=== PATIENT | male | born 1955 | race Caucasian/White ===

== ENCOUNTER 2020-10-28 05:16 | Emergency (ER) | payer MEDICARE, BC ==
[2020-10-28 05:31] VITALS: BP 181/96
--- NOTE | 2020-10-28 05:51 | ED Physician Documentation ---
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 He apparently has normal prostate and he has been doing well for a number of years after getting the stent placed for the tracheomalacia. He has not had to be in the hospital. This evening at about midnight he went to get up to go to the bathroom and was unable to. He has had persistence of this now and has developed some pain associated with it and he has come to the emergency department. Is very uncomfortable with any movement all suprapubic with distention of the suprapubic area. Review of Systems Constitutional: denies: Fever Nose: denies: Congestion Respiratory: denies: Cough GI: denies: Vomiting : reports: Unable to Void PD PAST MEDICAL HISTORY - Past Medical History Past Medical History: Yes Cardiovascular: Other Respiratory: Pneumonia, Other Neuro: None Endocrine/Autoimmune: None GI: None : Retention HEENT: None Psych: None Musculoskeletal: None Derm: None - Past Surgical History Past Surgical History: Yes - Present Medications Home Medications: Ambulatory Orders Medication Instructions Recorded Confirmed Azithromycin [Zithromax] 250 mg PO 10/28/20 Metoprolol Succinate [Toprol Xl] 25 mg PO 10/28/20 Tamsulosin [Flomax] 0.4 mg PO DAILY 10/28/20 10/28/20 - Allergies Allergies/Adverse Reactions: Allergies Allergy/AdvReac Type Severity Reaction Status Date / Time Sulfa (Sulfonamide AdvReac Itching Verified 10/28/20 05:41 Antibiotics) - Social History Does the pt smoke?: No Smoking Status: Never smoker Does the pt drink ETOH?: No Does the pt have substance abuse?: No - Immunizations Immunizations are current?: No Immunizations: TDAP >10years/unknown - POLST Patient has POLST: No PD ED PE NORMAL - Vitals Vital signs reviewed: Yes (tachycardic and hypertensive ) - General General: Alert and oriented X 3, No acute distress, Well developed/nourished - HEENT HEENT: Atraumatic, PERRL, EOMI - Respiratory Respiratory: No respiratory distress - Abdomen Abdomen: Other (suprapubic area is distended. ) - Back Back: No CVA TTP, No spinal TTP - Derm Derm: Normal color, Warm and dry, No rash - Extremities Extremities: No deformity, No edema - Neuro Neuro: Alert and oriented X 3, grease press helper 2-12 intact, No motor deficit, No sensory deficit Eye Opening: Spontaneous Motor: Obeys Commands Verbal: Oriented GCS Score: 15 - Psych Psych: Normal mood, Normal affect Results - Vitals Vitals: Vital Signs - 24 hr 10/28/20 05:22 Temperature 36.5 C Heart Rate 117 H Respiratory 18 Rate Blood Pressure 181/96 H O2 Saturation 99 Oxygen O2 Source Room air - Labs Labs: Laboratory Tests 10/28/20 05:55 Urine Color YELLOW Urine Clarity CLEAR Urine pH 5.5 Ur Specific [place] 1.025 Urine Protein NEGATIVE Urine Glucose (UA) NEGATIVE Urine Ketones NEGATIVE Urine Occult Blood TRACE-INTA Urine Nitrite NEGATIVE Urine Bilirubin NEGATIVE Urine Urobilinogen 0.2 (NORMAL) Ur Leukocyte Esterase NEGATIVE Ur Microscopic Review NOT INDICATED Urine Culture Comments NOT INDICATED PD MEDICAL DECISION MAKING - ED course Complexity details: reviewed results, re-evaluated patient, considered differential, d/w patient ED course: 65-year-old male with a history of recurrent pneumonia and tracheomalacia has had urinary retention previously and he has urinary retention again this morning. A Thomas catheter is placed draining more than 1500 mL of urine. There is no evidence of infection. Departure - Departure Disposition: 01 Home, Self Care Clinical Impression: Urinary retention Condition: Stable Instructions: ED Retention Urinary Male, ED Catheter Care Thomas Follow-Up: YOEL GODOY MD [Primary Care Provider] - Nancie Saleh MD [Provider Admit Priv/Credential] -
[2020-10-28 06:26] LABS: BILIRUBIN,URINE NEGATIVE (NEGATIVE); GLUCOSE, URINE (UA) NEGATIVE (NEGATIVE); KETONES,URINE (UA) NEGATIVE (NEGATIVE); LEUKOCYTE ESTERASE, URINE NEGATIVE (NEGATIVE); NITRITE,URINE NEGATIVE (NEGATIVE); OCCULT BLOOD,URINE TRACE-INTA (NEGATIVE); PH,URINE 5.5 PH (5.0-7.5); PROTEIN,URINE NEGATIVE (NEGATIVE); UROBILINOGEN,URINE 0.2 (NORMAL) E.U./dL (NORMAL)
[2020-10-28 06:27] LABS: CLARITY,URINE CLEAR (CLEAR)
== END 2020-10-28 06:55 | disposition home or self-care (01) ==
LOC: ED 05:16
DX: R33.9 Retention of urine, unspecified (principal)
CPT/HCPCS: 51702; 51798; 81001; 81003; 87086; 99282; 99283

== ENCOUNTER 2020-10-31 11:40 | Emergency (ER) | payer MEDICARE, BC ==
[2020-10-31] MEDS ORDERED: SODIUM CHLORIDE 0.9% 2,789.58 ML IV STA (11:57)
[2020-10-31 12:32] LABS: BASOPHILS # (AUTO) 0.1 10^3/uL (0.0-0.1); BASOPHILS % (AUTO) 0.4 %; EOSINOPHILS # (AUTO) 0.3 10^3/uL (0.0-0.7); EOSINOPHILS % (AUTO) 1.8 %; HCT - HEMATOCRIT 48.1 % (42.0-52.0); HGB - HEMOGLOBIN 15.4 g/dL (14.0-18.0); LYMPHOCYTES % (AUTO) 7.4 %; MEAN CORPUSCULAR HEMOGLOBIN 28.8 pg (27.0-31.0); MEAN CORPUSCULAR VOLUME 89.9 fL (80.0-94.0); MEAN PLATELET VOLUME 9.1 fL (7.4-11.4); MONOCYTES # (AUTO) 1.2 10^3/uL (0.0-1.0); MONOCYTES % (AUTO) 8.8 %; NEUTROPHILS # (AUTO) 11.2 10^3/uL (1.5-6.6); NEUTROPHILS % (AUTO) 81.2 %; PLT - PLATELET COUNT 249 10^3/uL (130-450); RED BLOOD COUNT 5.35 10^6/uL (4.70-6.10); RED CELL DISTRIBUTION WIDTH 13.1 % (12.0-15.0); WHITE BLOOD COUNT 13.8 x10^3/uL (4.8-10.8)
[2020-10-31 12:41] LABS: ALBUMIN 4.9 g/dL (3.2-5.5); ALBUMIN/GLOBULIN RATIO 1.4 (1.0-2.2); BILIRUBIN,TOTAL 0.5 mg/dL (0.2-1.0); CALCIUM 9.9 mg/dL (8.5-10.3); CREATININE 0.9 mg/dL (0.6-1.2); POTASSIUM 4.1 mmol/L (3.5-5.0); TOTAL PROTEIN 8.5 g/dL (6.7-8.2)
[2020-10-31 13:18] LABS: BILIRUBIN,URINE NEGATIVE (NEGATIVE); GLUCOSE, URINE (UA) NEGATIVE (NEGATIVE); KETONES,URINE (UA) NEGATIVE (NEGATIVE); LEUKOCYTE ESTERASE, URINE NEGATIVE (NEGATIVE); NITRITE,URINE NEGATIVE (NEGATIVE); OCCULT BLOOD,URINE LARGE (NEGATIVE); PH,URINE 5.5 PH (5.0-7.5); PROTEIN,URINE 30 mg/dL (NEGATIVE); UROBILINOGEN,URINE 0.2 (NORMAL) E.U./dL (NORMAL)
[2020-10-31 13:24] LABS: BACTERIA,URINE Rare /HPF (None Seen); CLARITY,URINE SL. CLOUDY (CLEAR); RBC,URINE TNTC /HPF (0-5); SQUAMOUS EPITHELIAL CELL,UR FEW Squamous (<= Few); WBC,URINE 0-3 /HPF (0-3)
[2020-10-31 13:25] LABS: MUCUS,URINE Few Strands
[2020-10-31] MEDS ORDERED: IOVERSOL 320 100 ML VIAL IVP ONE ×2 (13:58→14:08)
[2020-10-31] MEDS ORDERED: METOPROLOL TARTRATE 50 MG TABLET PO STA (14:44)
--- NOTE | 2020-10-31 14:45 | CT Report ---
PROCEDURE: ABDOMEN/PELVIS W/WO INDICATIONS: hematuria, urinary retention, fever 100.7 at home CONTRAST: IV CONTRAST: Optiray 320 ml: 140 PO CONTRAST: *NO PO CONTRAST TECHNIQUE: After the administration of intravenous contrast, 5 mm thick sections acquired from the diaphragms to the symphysis. 5 mm thick coronal and sagittal reformats were acquired. For radiation dose reducti on, the following was used: automated exposure control, adjustment of mA and/or kV according to faviola ent size. COMPARISON: None. FINDINGS: Image quality: Excellent. Lung bases: Airspace consolidation involving posterior lateral aspect of left lower lobe near left rose ng base containing a focal area of calcification measures 3 mm in size series 5 image 14. Heart size is normal. Urinary system: Both kidneys are normal in size, without hydronephrosis on pre-contrast images. 5 m m nonobstructing stone in the midpole of left kidney is seen. Mild bilateral perinephric fat strandin g is seen, no perinephric fluid collection. There is normal bilateral renal enhancement. Renal calyc es appear normal in morphology when filled with contrast. Opacified portions of both ureters demonst rate normal caliber. Diffuse bladder wall thickening is seen measures up to 9 mm in thickness anterio rly. No calcified bladder stones. Enlarged prostate gland with significant mass effect on fluorosco py revealed a bladder is seen. A Thomas catheter is noted within bladder lumen. Other solid organs: Liver and spleen are normal in size and enhancement. Gallbladder is within iram l limits Biliary system is non dilated. Pancreas enhances normally. No adrenal nodules. Peritoneum and bowel: Bowel loops demonstrate normal wall thickness and caliber. No free fluid or a ir. Appendix is visualized and is within normal limits. Nodes and vessels: No retroperitoneal or mesenteric adenopathy by size criteria. Aorta and inferior vena cava are normal in size. Abdominal wall: No ventral hernias. Pelvis: No pathologic free pelvic fluid. Bilateral inguinal hernias are seen containing fat only. No inguinal lymphadenopathy. Bones: No suspicious bony lesions. No vertebral body compression fractures. Degenerative endplate c hanges and bilateral facet arthrosis throughout lumbar spine is seen. IMPRESSION: 1. 5 mm nonobstructing stone in mid pole of left kidney. No obstructing renal stone or hydronephrosis . Normal-appearing bilateral ureters. 2. Mild bilateral perinephric fat stranding. No perinephric fluid collection. No discrete enhancing r enal lesion. Diffuse bladder wall thickening. Markedly enlarged prostate gland with mass effect on fl oor of urinary bladder. Thomas catheter in place. Finding may represent chronic urinary outlet obstruc tion and/or UTI with pyonephritis and cystitis. 3. Normal appendix. No bowel obstruction. No free fluid of free air. No abdominal or pelvic abscess c ollection. 4. Masslike consolidation in posterior lateral aspect of left lower lobe near left lung base with foc al area of calcification. Finding most likely represent left basilar infiltrate. Follow-up until reso lution is recommended. Reviewed by: Genaro Emerson MD on 10/31/2020 2:44 PM PDT Approved by: Genaro Emerson MD on 10/31/2020 2:44 PM PDT Station ID: [id number]
--- NOTE | 2020-10-31 15:09 | XRAY Report ---
PROCEDURE: Chest 2 View X-Ray INDICATIONS: history of recurrent pneumonia TECHNIQUE: 2 view(s) of the chest. COMPARISON: CT of abdomen and pelvis from the same day. FINDINGS: Surgical changes and devices: None. Lungs and pleura: No pleural effusions or pneumothorax. Airspace opacity is seen in lateral aspect o f left lung base. Mediastinum: Mediastinal contours are normal. Heart size is normal. Bones and chest wall: No suspicious bony abnormalities. Soft tissues appear unremarkable. Severe b ilateral glenohumeral joint osteophytic changes are seen. IMPRESSION: 1. Finding is suggestive of left basilar infiltrate which was also seen on CT study. Follow-up until resolution is recommended to rule out underlying malignant process. Reviewed by: Genaro Emerson MD on 10/31/2020 3:07 PM PDT Approved by: Genaro Emerson MD on 10/31/2020 3:07 PM PDT Station ID: [id number]
--- NOTE | 2020-10-31 15:16 | ED Physician Documentation ---
History of Present Illness - Stated complaint Stated Complaint: MALE - Chief complaint Chief Complaint: Fever - History obtained from History obtained from: Patient - Additonal information Additional information: 65-year-old man with past medical history of recurrent pneumonia on daily azithromycin for the past 2 years, high blood pressure on metoprolol, presents with hematuria today and temperature of 100.7 taken by oral thermometer this morning. Patient states that he had a Euceda placed on Saturday for urinary retention of unknown cause. Since that time he has been doing well and it has been draining appropriately but he noticed that it was blood-tinged this morning. Denies dysuria, abdominal pain, back pain or other symptoms. Denies chest pain, shortness of breath, fever, cough. Review of Systems Ten Systems: 10 systems reviewed and negative Constitutional: reports: Fever Respiratory: denies: Dyspnea, Cough GI: denies: Abdominal Pain, Nausea, Vomiting : reports: Dysuria, Hematuria PD PAST MEDICAL HISTORY - Past Medical History Past Medical History: Yes Cardiovascular: Other Respiratory: Pneumonia, Other Neuro: None Endocrine/Autoimmune: None GI: None : Retention HEENT: None Psych: None Musculoskeletal: None Derm: None - Past Surgical History Past Surgical History: Yes - Present Medications Home Medications: Ambulatory Orders Medication Instructions Recorded Confirmed Azithromycin [Zithromax] 250 mg PO 10/28/20 Metoprolol Succinate [Toprol Xl] 25 mg PO 10/28/20 Tamsulosin [Flomax] 0.4 mg PO DAILY 10/28/20 10/28/20 Levofloxacin 750 mg PO BID 7 Days #14 tablet 10/31/20 - Allergies Allergies/Adverse Reactions: Allergies Allergy/AdvReac Type Severity Reaction Status Date / Time Sulfa (Sulfonamide AdvReac Itching Verified 10/31/20 11:54 Antibiotics) - Social History Does the pt smoke?: No Smoking Status: Never smoker Does the pt drink ETOH?: No Does the pt have substance abuse?: No - Immunizations Immunizations are current?: No Immunizations: TDAP >10years/unknown - POLST Patient has POLST: No PD ED PE NORMAL - Vitals Vital signs reviewed: Yes - General General: Alert and oriented X 3, No acute distress, Well developed/nourished - HEENT HEENT: Atraumatic, PERRL, EOMI - Neck Neck: Supple, no meningeal sign - Cardiac Cardiac: RRR - Respiratory Respiratory: No respiratory distress, Clear bilaterally - Abdomen Abdomen: Non tender, Non distended - Male Male : Other (euceda with blood tinged urine) - Rectal Rectal: Deferred - Back Back: No CVA TTP - Derm Derm: Normal color - Extremities Extremities: No deformity - Neuro Neuro: Alert and oriented X 3 - Psych Psych: Normal mood, Normal affect Results - Vitals Vitals: Oxygen O2 Source Room air - Labs Labs: Microbiology 10/31/20 12:07 Blood Culture - Preliminary Blood NO GROWTH AFTER 2 DAYS 10/31/20 12:35 Blood Culture - Preliminary Blood NO GROWTH AFTER 1 DAY Laboratory Tests 10/31/20 10/31/20 10/31/20 12:07 12:07 12:07 WBC 13.8 H RBC 5.35 Hgb 15.4 Hct 48.1 MCV 89.9 MCH 28.8 MCHC 32.0 RDW 13.1 Plt Count 249 MPV 9.1 Neut # (Auto) 11.2 H Lymph # (Auto) 1.0 L [place] # (Auto) 1.2 H Eos # (Auto) 0.3 Baso # (Auto) 0.1 Absolute Nucleated RBC 0.00 Nucleated RBC % 0.0 Sodium 137 Potassium 4.1 Chloride 94 L Carbon Dioxide 27 Anion Gap 16.0 H BUN 19 Creatinine 0.9 Estimated GFR (MDRD) 85 L Glucose 96 Lactic Acid 1.2 Calcium 9.9 Total Bilirubin 0.5 AST 21 ALT 12 Alkaline Phosphatase 90 Total Protein 8.5 H Albumin 4.9 Globulin 3.6 Albumin/Globulin Ratio 1.4 Urine Color Urine Clarity Urine pH Ur Specific [place] Urine Protein Urine Glucose (UA) Urine Ketones Urine Occult Blood Urine Nitrite Urine Bilirubin Urine Urobilinogen Ur Leukocyte Esterase Urine RBC Urine WBC Ur Squamous Epith Cells Urine Bacteria Urine Mucus Urine Culture Comments 10/31/20 13:09 WBC RBC Hgb Hct MCV MCH MCHC RDW Plt Count MPV Neut # (Auto) Lymph # (Auto) [place] # (Auto) Eos # (Auto) Baso # (Auto) Absolute Nucleated RBC Nucleated RBC % Sodium Potassium Chloride Carbon Dioxide Anion Gap BUN Creatinine Estimated GFR (MDRD) Glucose Lactic Acid Calcium Total Bilirubin AST ALT Alkaline Phosphatase Total Protein Albumin Globulin Albumin/Globulin Ratio Urine Color YELLOW Urine Clarity SL. CLOUDY Urine pH 5.5 Ur Specific [place] >=1.030 H Urine Protein 30 H Urine Glucose (UA) NEGATIVE Urine Ketones NEGATIVE Urine Occult Blood LARGE H Urine Nitrite NEGATIVE Urine Bilirubin NEGATIVE Urine Urobilinogen 0.2 (NORMAL) Ur Leukocyte Esterase NEGATIVE Urine RBC TNTC H Urine WBC 0-3 Ur Squamous Epith Cells FEW Squamous Urine Bacteria Rare Urine Mucus Few Strands Urine Culture Comments NOT INDICATED PD MEDICAL DECISION MAKING - ED course ED course: 65yM with pmh recurrent pneumonia on daily prophylactic azithromycin, recent ed visit for urinary retention p/w hematuria from euceda and fever 100.7 oral at home today. patient with discomfort at euceda site but otherwise asymptomatic. Urine without clear evidence of uti. ct scan with bladder thickening concerning for possible uti. no obstructing stone on ct. possible basilar scarring vs atelectasis vs pneumonia as well. discussed these results with patient and a shared decision was made to trial outpatient antibiotics with strict return precautions given. He will f.u with his claims analyst and urologist. Departure - Departure Disposition: 01 Home, Self Care Clinical Impression: Hematuria, Left pulmonary infiltrate on CXR, Fever Condition: Good Instructions: ED Fever Unconf Cause Prescriptions: Levofloxacin 750 mg PO BID 7 Days #14 tablet Comments: You were seen in the emergency department for fever and blood in your urine. We found a 5 mm left kidney stone that is not obstructing. We also found that you have bladder thickening and an enlarged prostate. You should follow-up with urology this week for further recommendations. Please take the antibiotic we prescribed and hold off on your daily azithromycin while taking this antibiotic. After you finish it you can switch back to your azithromycin. Return to the emergency department if you develop any new or worsening symptoms or have other concerns. Follow-up with your claims analyst in regards to the left lung spot that we discussed. Discharge Date/Time: 10/31/20 15:49
[2020-10-31 15:51] VITALS: BP 135/77
== END 2020-10-31 15:49 | disposition home or self-care (01) ==
LOC: ED 11:40
DX: R31.9 Hematuria, unspecified (principal); R50.9 Fever, unspecified; R91.8 Other nonspecific abnormal finding of lung field; Z87.01 Personal history of pneumonia (recurrent); N20.0 Calculus of kidney; N32.89 Other specified disorders of bladder; N40.1 Benign prostatic hyperplasia with lower urinary tract symptoms; R33.8 Other retention of urine
CPT/HCPCS: 36415; 71046; 74178; 80053; 81001; 83605; 85025; 87040; 96360; 96361; 99284; A9270; Q9967; 87086

== ENCOUNTER 2020-11-13 00:09 | Emergency (ER) | payer MEDICARE, BC ==
--- OUTSIDE RECORDS SUMMARY | 2020-11-13 00:12 | EXTERNAL MEDICAL SUMMARY RPT | Continuity of Care Document ---
:1955 Demographics Phone Unavailable Preferred Language Unknown Marital Status Unknown Episcopalian Affiliation Unknown Race Unknown Ethnic Group Unknown Author Organization [facility] Address [address] [id number] Phone Social History date description facility [phone]
--- OUTSIDE RECORDS SUMMARY | 2020-11-13 00:17 | EXTERNAL MEDICAL SUMMARY RPT | Continuity of Care Document ---
:1955 Demographics Phone Unavailable Preferred Language Unknown Marital Status Unknown Episcopalian Affiliation Unknown Race Unknown Ethnic Group Unknown Author Organization [facility] Address [address] [place] [address] Phone Social History date description facility [phone]
--- NOTE | 2020-11-13 01:06 | ED Physician Documentation ---
PD HPI MALE - Stated complaint Stated Complaint: MALE - Chief complaint Chief Complaint: Abd Pain - History obtained from History obtained from: Patient - History of Present Illness Timing - onset: Enter time (17:00) Timing - details: Abrupt onset Pain level max: 0 Pain level now: 0 Associated symptoms: Hematuria Recently seen: Emergency Dept - Additional information Additional information: patient presents with painless hematuria. He was evaluated in this ED 10/28 for urinary retention, euceda catheter was placed and he was discharged with euceda in place. He returned 10/31 for fever; ED note indicates gross hematuria although patient says he does not recall noting any obvious blood in his urine. His tests on the 10/31 visit were suggestive of UTI and he was prescribed levaquin. He says he felt much improved with the levaquin and he completed the prescribed course. He has a urologist but was unable to schedule a follow up appointment sooner than this coming Saturday and thus the euceda catheter remains in place. At approximately 5 PM, he noted gross hematuria output into the euceda catheter. He did not sustain an injury or have any traction on the catheter. He denies fever. The urine has gradually become less bloody but due to its persistence for several hours he presents for ED evaluation. Review of Systems Constitutional: denies: Fever, Chills, Sweats GI: denies: Abdominal Pain : reports: Hematuria. denies: Dysuria Musculoskeletal: denies: Back pain PD PAST MEDICAL HISTORY - Past Medical History Past Medical History: Yes Cardiovascular: Other Respiratory: Pneumonia, Other Neuro: None Endocrine/Autoimmune: None GI: None : Retention HEENT: None Psych: None Musculoskeletal: None Derm: None - Past Surgical History Past Surgical History: Yes - Present Medications Home Medications: Ambulatory Orders Medication Instructions Recorded Confirmed Azithromycin [Zithromax] 250 mg PO 10/28/20 Metoprolol Succinate [Toprol Xl] 25 mg PO 10/28/20 Tamsulosin [Flomax] 0.4 mg PO DAILY 10/28/20 10/28/20 Levofloxacin 750 mg PO BID 7 Days #14 tablet 10/31/20 Levofloxacin 750 mg PO BID #13 tablet 11/13/20 - Allergies Allergies/Adverse Reactions: Allergies Allergy/AdvReac Type Severity Reaction Status Date / Time Sulfa (Sulfonamide AdvReac Itching Verified 11/13/20 00:18 Antibiotics) - Social History Does the pt smoke?: No Smoking Status: Never smoker Does the pt drink ETOH?: No Does the pt have substance abuse?: No - Immunizations Immunizations are current?: Yes Immunizations: TDAP >10years/unknown - POLST Patient has POLST: No PD ED PE NORMAL - Vitals Vital signs reviewed: Yes - General General: Alert and oriented X 3, No acute distress, Well developed/nourished - Abdomen Abdomen: Soft, Non tender - Back Back: No CVA TTP PD ED PE EXPANDED - Male Male : Other (euceda catheter in place with translucent gross hematuria in tubing and collection bag without clots) Results - Vitals Vitals: Vital Signs - 24 hr 11/13/20 11/13/20 11/13/20 00:10 00:13 02:13 Temperature 36.7 C 36.7 C 36.6 C Heart Rate 91 91 90 Respiratory 18 18 18 Rate Blood Pressure 164/83 H 164/83 H 161/101 H O2 Saturation 99 99 98 Oxygen O2 Source Room air - Labs Labs: Laboratory Tests 11/13/20 11/13/20 11/13/20 01:13 01:24 01:24 WBC 6.9 RBC 4.86 Hgb 14.0 Hct 42.3 MCV 87.0 MCH 28.8 MCHC 33.1 RDW 12.5 Plt Count 243 MPV 8.3 Neut # (Auto) 4.8 Lymph # (Auto) 1.1 L [place] # (Auto) 0.6 Eos # (Auto) 0.3 Baso # (Auto) 0.0 Absolute Nucleated RBC 0.00 Nucleated RBC % 0.0 Sodium 136 Potassium 4.2 Chloride 101 Carbon Dioxide 26 Anion Gap 9.0 BUN 23 H Creatinine 0.8 Estimated GFR (MDRD) 97 Glucose 113 H Calcium 8.9 Urine Color RED/BLOODY Urine Clarity BLOODY Urine pH 6.5 Ur Specific [place] 1.025 Urine Protein Urine Glucose (UA) 100 H Urine Ketones TRACE Urine Occult Blood LARGE H Urine Nitrite POSITIVE H Urine Bilirubin NEGATIVE Urine Urobilinogen Ur Leukocyte Esterase SMALL H Urine RBC TNTC H Urine WBC 0-3 Ur Squamous Epith Cells RARE Squamous Urine Bacteria Moderate H Urine Yeast PRESENT Ur Microscopic Review INDICATED Urine Culture Comments INDICATED PD MEDICAL DECISION MAKING - ED course Complexity details: reviewed old records, reviewed results, re-evaluated patient, considered differential, d/w patient ED course: unremarkable blood test results including normal WBC. His urinalysis has TNTC rbc but also positive for nitrites, with moderate bacteria but only rare squamous cells. Macroscopic UA positive for small LE although 0-5 on microscopy. I discussed the option of another course of levaquin versus waiting for culture result and reevaluation by urology as scheduled mid-week. I recommended the levaquin based on the presence of nitrites and bacteria without significant squamous cells to attribute to contamination, and he agrees with this. Departure - Departure Disposition: 01 Home, Self Care Clinical Impression: Hematuria Qualifiers: Hematuria type: gross Qualified Code(s): R31.0 - Gross hematuria Condition: Good Instructions: ED Hematuria Prescriptions: Levofloxacin 750 mg PO BID #13 tablet Comments: Follow up with your urologist this week as scheduled. Stop the azithromycin until you have completed the course of levaquin (levofloxacin) Discharge Date/Time: 11/13/20 02:35
[2020-11-13 01:31] LABS: BASOPHILS % (AUTO) 0.3 %; EOSINOPHILS # (AUTO) 0.3 10^3/uL (0.0-0.7); EOSINOPHILS % (AUTO) 3.6 %; HCT - HEMATOCRIT 42.3 % (42.0-52.0); LYMPHOCYTES # (AUTO) 1.1 10^3/uL (1.5-3.5); LYMPHOCYTES % (AUTO) 16.4 %; MEAN CORPUSCULAR HEMOGLOBIN 28.8 pg (27.0-31.0); MEAN CORPUSCULAR HGB CONC 33.1 g/dL (32.0-36.0); MEAN PLATELET VOLUME 8.3 fL (7.4-11.4); MONOCYTES # (AUTO) 0.6 10^3/uL (0.0-1.0); MONOCYTES % (AUTO) 8.6 %; NEUTROPHILS # (AUTO) 4.8 10^3/uL (1.5-6.6); NEUTROPHILS % (AUTO) 70.4 %; PLT - PLATELET COUNT 243 10^3/uL (130-450); RED BLOOD COUNT 4.86 10^6/uL (4.70-6.10); RED CELL DISTRIBUTION WIDTH 12.5 % (12.0-15.0); WHITE BLOOD COUNT 6.9 x10^3/uL (4.8-10.8)
[2020-11-13 01:39] LABS: GLUCOSE, URINE (UA) 100 mg/dL (NEGATIVE); KETONES,URINE (UA) TRACE mg/dL (NEGATIVE); LEUKOCYTE ESTERASE, URINE SMALL (NEGATIVE); NITRITE,URINE POSITIVE (NEGATIVE); OCCULT BLOOD,URINE LARGE (NEGATIVE); PH,URINE 6.5 PH (5.0-7.5)
[2020-11-13 01:39] LABS: CALCIUM 8.9 mg/dL (8.5-10.3); CREATININE 0.8 mg/dL (0.6-1.2); POTASSIUM 4.2 mmol/L (3.5-5.0)
[2020-11-13 01:40] LABS: CLARITY,URINE BLOODY (CLEAR)
[2020-11-13 01:44] LABS: BILIRUBIN,URINE NEGATIVE (NEGATIVE); ICTOTEST,URINE NEGATIVE
[2020-11-13 01:48] LABS: RBC,URINE TNTC /HPF (0-5); SQUAMOUS EPITHELIAL CELL,UR RARE Squamous (<= Few); WBC,URINE 0-3 /HPF (0-3)
[2020-11-13 01:49] LABS: BACTERIA,URINE Moderate /HPF (None Seen); YEAST,URINE PRESENT
[2020-11-13 02:19] VITALS: BP 161/101
[2020-11-13] MEDS ORDERED: levoFLOXacin 250 MG TABLET PO STA (02:21)
== END 2020-11-13 02:35 | disposition home or self-care (01) ==
LOC: ED 00:09
DX: R31.0 Gross hematuria (principal); Z96.0 Presence of urogenital implants
CPT/HCPCS: 36415; 80048; 81001; 85025; 87086; 99283; A9270; 81003

== ENCOUNTER 2021-08-13 15:26 | Emergency (ER) | payer MEDICARE, OTHER ==
[2021-08-13 15:41] VITALS: BP 154/92
[2021-08-13] MEDS ORDERED: OXYMETAZOLINE HCL 100 SPRAYS BOTTLE NAS STA (16:22)
[2021-08-13] MEDS ORDERED: SILVER NITRATE APPLICATOR TOP STA (16:22)
--- NOTE | 2021-08-13 16:24 | ED Physician Documentation ---
PD HPI HEENT - Stated complaint Stated Complaint: NOSE BLEED - Chief complaint Chief Complaint: Heent - History obtained from History obtained from: Patient (He scratched his nose and it started bleeding about an hour ago. Persistent nosebleed from the left nares.) Review of Systems Constitutional: reports: Reviewed and negative Nose: reports: Reviewed and negative Throat: reports: Reviewed and negative PD PAST MEDICAL HISTORY - Past Medical History Cardiovascular: Other Respiratory: Pneumonia, Other Neuro: None Endocrine/Autoimmune: None GI: None : Retention HEENT: None Psych: None Musculoskeletal: None Derm: None - Past Surgical History Past Surgical History: Yes - Present Medications Home Medications: Ambulatory Orders Medication Instructions Recorded Confirmed Azithromycin [Zithromax] 250 mg PO 10/28/20 Metoprolol Succinate [Toprol Xl] 25 mg PO 10/28/20 Tamsulosin [Flomax] 0.4 mg PO DAILY 10/28/20 10/28/20 levoFLOXacin [Levofloxacin] 750 mg PO BID 7 Days #14 tablet 10/31/20 levoFLOXacin [Levofloxacin] 750 mg PO BID #13 tablet 11/13/20 - Allergies Allergies/Adverse Reactions: Allergies Allergy/AdvReac Type Severity Reaction Status Date / Time Sulfa (Sulfonamide AdvReac Itching Verified 08/13/21 15:37 Antibiotics) - Social History Does the pt smoke?: No Smoking Status: Never smoker Does the pt drink ETOH?: No Does the pt have substance abuse?: No - Immunizations Immunizations are current?: Yes Immunizations: TDAP >10years/unknown - POLST Patient has POLST: No PD ED PE NORMAL - Vitals Vital signs reviewed: Yes - General General: Alert and oriented X 3, No acute distress - HEENT HEENT: Other (Sloow ooze from L kiesselbach's plexus.) - Neuro Neuro: Alert and oriented X 3, Normal speech Results - Vitals Vitals: Vital Signs - 24 hr 08/13/21 15:37 Temperature 36.7 C Heart Rate 92 Respiratory 18 Rate Blood Pressure 154/92 H O2 Saturation 94 Oxygen O2 Source Room air Procedures - Epistaxis Site: Left, Anterior Preparation: Other (Lidocaine and oxymetazoline were placed on a cottonball and let sit for about 5 minutes. After that there was no further bleeding) Other: Observed - no bleeding Departure - Departure Disposition: Home, Self Care Clinical Impression: Epistaxis Condition: Good Record reviewed to determine appropriate education?: Yes Instructions: Nosebleed Comments: We treated you today with combination of lidocaine and oxymetazoline which seems to have stopped bleeding. If it starts up again, simply pinch your nose for 20 minutes without releasing pressure. If it continues after that return for reevaluation.
== END 2021-08-13 16:53 | disposition home or self-care (01) ==
LOC: ED 15:26
DX: R04.0 Epistaxis (principal)
CPT/HCPCS: 30901; 99282; A9270

== ENCOUNTER 2022-03-02 22:50 | Emergency (ER) | payer MEDICARE, OTHER ==
[2022-03-03 00:15] LABS: BILIRUBIN,URINE NEGATIVE (NEGATIVE); CLARITY,URINE CLEAR (CLEAR); GLUCOSE, URINE (UA) 100 mg/dL (NEGATIVE); KETONES,URINE (UA) NEGATIVE (NEGATIVE); LEUKOCYTE ESTERASE, URINE NEGATIVE (NEGATIVE); NITRITE,URINE NEGATIVE (NEGATIVE); OCCULT BLOOD,URINE TRACE-INTA (NEGATIVE); PH,URINE 5.5 PH (5.0-7.5); PROTEIN,URINE NEGATIVE (NEGATIVE); UROBILINOGEN,URINE 0.2 (NORMAL) E.U./dL (NORMAL)
--- NOTE | 2022-03-03 00:30 | ED Physician Documentation ---
PD HPI MALE - Stated complaint Stated Complaint: MALE - Chief complaint Chief Complaint: Abd Pain - History obtained from History obtained from: Patient - History of Present Illness Timing - onset: Today - Additional information Additional information: 67-year-old male with history of BPH on Flomax and finasteride presents for urinary retention. Patient had a similar episode several weeks ago, he had the Thomas removed 3 days ago by urology and discharged home. Patient states that initially he was urinating well, however today he was unable to pass any urine despite taking Flomax. Patient states that he was told by his urologist that if he cannot pee for 6 hours to return to the ER. Reports suprapubic fullness, denies other complaints.Patient states he is in the process of being evaluated for potential surgery for his prostate. Review of Systems Ten Systems: 10 systems reviewed and negative Constitutional: denies: Fever, Chills, Myalgias Cardiac: denies: Chest pain / pressure, Palpitations, Pedal edema Respiratory: denies: Dyspnea, Cough, Wheezing GI: reports: Abdominal Pain. denies: Nausea, Vomiting, Constipation, Diarrhea Skin: denies: Rash, Lesions PD PAST MEDICAL HISTORY - Past Medical History Cardiovascular: Other Respiratory: Pneumonia, Other Neuro: None Endocrine/Autoimmune: None GI: None : Retention HEENT: None Psych: None Musculoskeletal: None Derm: None - Past Surgical History Past Surgical History: Yes - Present Medications Home Medications: Ambulatory Orders Medication Instructions Recorded Confirmed Azithromycin [Zithromax] 250 mg PO DAILY 10/28/20 03/03/22 Metoprolol Succinate [Toprol Xl] 25 mg PO DAILY 10/28/20 03/03/22 Tamsulosin [Flomax] 0.4 mg PO DAILY 10/28/20 03/03/22 predniSONE [Deltasone] 10 mg PO ONCE #27 tablet 02/13/22 03/03/22 - Allergies Allergies/Adverse Reactions: Allergies Allergy/AdvReac Type Severity Reaction Status Date / Time Sulfa (Sulfonamide AdvReac Itching Verified 03/02/22 23:30 Antibiotics) - Social History Does the pt smoke?: No Smoking Status: Never smoker Does the pt drink ETOH?: No Does the pt have substance abuse?: No - Immunizations Immunizations are current?: Yes Immunizations: TDAP >10years/unknown - POLST Patient has POLST: No PD ED PE NORMAL - Vitals Vital signs reviewed: Yes - General General: Alert and oriented X 3, No acute distress, Well developed/nourished - HEENT HEENT: Atraumatic, PERRL, EOMI, Ears normal - Neck Neck: Supple, no meningeal sign, No bony TTP, C-Spine cleared by NEXUS criteria - Cardiac Cardiac: RRR, No murmur, Strong equal pulses - Respiratory Respiratory: No respiratory distress, Clear bilaterally - Abdomen Abdomen: Soft, Non tender, Other (Suprapubic fullness) - Male Male : Deferred, Pt declined - Back Back: No CVA TTP, No spinal TTP - Derm Derm: Normal color, Warm and dry, No rash - Extremities Extremities: No deformity, No tenderness to palpate, Normal ROM s pain, No edema - Neuro Neuro: Alert and oriented X 3, straight cutter machine 2-12 intact, No motor deficit, No sensory deficit, Normal speech - Psych Psych: Normal mood, Normal affect Results - Vitals Vitals: Vital Signs - 24 hr 03/02/22 03/03/22 23:20 01:00 Temperature 36.5 C 36.8 C Heart Rate 107 H 70 Respiratory 18 16 Rate Blood Pressure 139/87 H 167/101 H O2 Saturation 96 100 Oxygen O2 Source Room air - Labs Labs: Laboratory Tests 03/03/22 00:00 Urine Color YELLOW Urine Clarity CLEAR Urine pH 5.5 Ur Specific [place] 1.020 Urine Protein NEGATIVE Urine Glucose (UA) 100 H Urine Ketones NEGATIVE Urine Occult Blood TRACE-INTA Urine Nitrite NEGATIVE Urine Bilirubin NEGATIVE Urine Urobilinogen 0.2 (NORMAL) Ur Leukocyte Esterase NEGATIVE Ur Microscopic Review NOT INDICATED Urine Culture Comments NOT INDICATED PD MEDICAL DECISION MAKING - ED course ED course: Urinary retention, known BPH. Thomas placed, drained large amount of clear yellow urine. No infection per urinalysis. Patient states he is very familiar with Thomas catheter care and will follow up with his urologist Departure - Departure Disposition: 01 Home, Self Care Clinical Impression: Urinary retention Condition: Stable Instructions: Catheter Indwelling Urinary Dc, Leg Bag Care Dc Discharge Date/Time: 03/03/22 01:02
[2022-03-03 01:02] VITALS: BP 167/101
== END 2022-03-03 01:02 | disposition home or self-care (01) ==
LOC: ED 22:50
DX: N40.1 Benign prostatic hyperplasia with lower urinary tract symptoms (principal); R33.8 Other retention of urine
CPT/HCPCS: 51702; 81001; 81003; 87086; 99282; 99283